=== PATIENT | male | born 1975 | race Two or more races ===

== ENCOUNTER 2020-10-19 15:51 | Emergency (ER) | payer SELFPAY ==
[~2020-10-19] VITALS: Ht 182.9 cm; Wt 113.4 kg
--- NOTE | 2020-10-19 16:07 | NUR ---
BIB FROM THE STREET. TO ER BED 12. INTOXICATED - SMELLS OF ALCOHOL. NOT IN RESP DISTRESSM BREATHING EVEN AND UNLABORED. PT IS SLEEPING AT THIS TIME. WAS AT THE BEDSIDE FOR DANIELE.
[2020-10-19] MEDS ORDERED: IV NS 0.9% 1,000 ML BAG IV ONE (19:00)
--- NOTE | 2020-10-19 20:20 | NUR ---
pt is awake, alert and oriented. ambulatory on steady gait to bathroom. pt verbalized that he is feeling better and had too much to drink earlier.
--- NOTE | 2020-10-19 20:20 | NUR ---
Patient discharged to home in stable condition. Written and verbal after care instructions given. Patient verbalizes understanding of instruction.IV removed. Catheter intact and site benign. Pressure and 4x4 applied to site. No bleeding noted. Pt ambulatory with a steady gait
[2020-10-19 20:21] VITALS: BP 131/89
== END 2020-10-19 20:21 | disposition home or self-care (01) ==
LOC: ER 15:54
DX: F10.10 Alcohol abuse, uncomplicated (principal); F43.10 Post-traumatic stress disorder, unspecified; Z59.0 Homelessness; Y90.9 Presence of alcohol in blood, level not specified
CPT/HCPCS: 82962; 96360; 96361; 99283; J7030